=== PATIENT | female | born 1965 | race Caucasian/White ===

== ENCOUNTER 2017-08-16 18:16 | Inpatient (IN) | payer OTHER ==
[~2017-08-16] VITALS: Ht 165.1 cm; Wt 97.0 kg
[~2017-08-16 18:16] MED LIST: ASPI1TAB83 PO; ATOR-24 PO; CEPH500C PO; CLC100X PO; CLON0.5T3 PO; DILT-115 PO; DULO60CA44 PO; FERR1TAB23 PO; FOLI1TAB7 PO; KPP/750 PO; LCTX PO; LISI5TAB3 PO; METO-596 PO; MULTTAB5 PO; NRN/300 PO; PANT1TAB48 PO; POLY335040 PO; REVIEWED; RISP0.253 PO; RXC5 PO; ZOLP5TAB PO
[2017-08-16] MEDS ORDERED: SODIUM CHLORIDE 0.9% 1000ML 1,000 ML IV STA (18:30)
[2017-08-16] MEDS ORDERED: LEVETIRACETAM IV 1,000 MG in DEXTROSE 5% 100ML 100 ML IV ONE (18:45)
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
[2017-08-16 20:25] LABS: COMPLETE YES; EOS % 1.4 %; HEMATOCRIT 36.3 % (37-47); IG% 0.2 %; LYMPH % 38.7 %; LYMPH ABS # 1.98 K/uL (1.2-3.4); MEAN CELL VOLUME 90.5 fL (80-100); MEAN CORPUSCULAR HEMOGLOBIN 30.4 pg (25-34); MEAN CORPUSCULAR HGB CONC 33.6 g/dl (32-36); MONO % 8.2 %; NEUT % 51.5 %; PLATELET COUNT 151 K/uL (130-400); RED BLOOD COUNT 4.01 M/uL (4.2-5.4); WHITE BLOOD COUNT 5.11 K/uL (4.8-10.8)
[2017-08-16 20:40] LABS: VEN BLD GAS O2 SATURATION 95.6 %; VEN BLOOD GAS BASE EXCESS 1.8 mEq/L
--- NOTE | 2017-08-16 20:44 | DIAGNOSTIC IMAGING REPORT ---
HEAD WITHOUT CONTRAST (CT) CLINICAL HISTORY: 51 years-old Female presenting with AMS; h/o seizures. TECHNIQUE: Multidetector CT imaging of the head was performed without the use of intravenous contrast. IV contrast: None. A dose lowering technique was used consistent with the principles of ALARA (as low as reasonably achievable). COMPARISON: 04/05/2014. CT DOSE (mGy.cm): The estimated cumulative dose is 729.78 mGycm. FINDINGS: Artificial Flowers Dyer topogram: Unremarkable. Ventricles and sulci normal in size. Hypodensity of the anterior left temporal lobe with associated expansion of the left sylvian fissure and temporal horn of the left lateral ventricle, consistent with chronic infarct, new from prior. No mass effect or midline shift. No hemorrhage or acute territorial infarct. No extra-axial fluid collection. Paranasal sinuses and mastoid air cells clear. Calvarium intact. IMPRESSION: 1. Interval development of chronic infarct in the left anterior temporal lobe. No convincing evidence of acute intracranial pathology. Electronically signed by: Carlo Alvarado M.D. 08/16/2017 8:43 PM Dictated Date/Time: 08/16/2017 8:39 PM
[2017-08-16 20:48] LABS: ALT/SGPT 18 U/L (12-78); AST/SGOT 13 U/L (15-37); BLOOD UREA NITROGEN 25 mg/dl (7-18); BUN/CREATININE RATIO 28.2 (10-20); CALCIUM 8.4 mg/dl (8.5-10.1); CARBON DIOXIDE 24 mmol/L (21-32); CHLORIDE 110 mmol/L (98-107); CREATININE 0.87 mg/dl (0.60-1.20); GLUCOSE 103 mg/dl (70-99); POTASSIUM 4.4 mmol/L (3.5-5.1); SODIUM 143 mmol/L (136-145)
[2017-08-16 20:53] LABS: ALKALINE PHOSPHATASE 98 U/L (45-117)
[2017-08-16] MEDS ORDERED: ASPIRIN 324 MG CHEW PO STA (21:26)
[2017-08-16] MEDS ORDERED: DLN100 PO (21:30)
[2017-08-16] MEDS ORDERED: EFF75 PO (21:30)
[2017-08-16] MEDS ORDERED: KPP/1000 PO (21:30)
[2017-08-16] MEDS ORDERED: LAMO25TA PO (21:30)
[2017-08-16] MEDS ORDERED: RISP1TAB68 PO (21:30)
[2017-08-16] MEDS ORDERED: LISI-461 PO (21:30)
[2017-08-16] MEDS ORDERED: EFF/375 PO (21:30)
[2017-08-16 21:59] LABS: MAGNESIUM 1.9 mg/dl (1.8-2.4)
--- NOTE | 2017-08-16 22:44 | DIAGNOSTIC IMAGING REPORT ---
R VENOUS DOPPLER UPR EXT UNIL CLINICAL HISTORY: 51 years-old Female presenting with RUE swelling. TECHNIQUE: Real-time grayscale and color and spectral Doppler ultrasound imaging of the veins of the right upper extremity was performed. Compression and augmentation were also utilized. COMPARISON: 01/26/2016. FINDINGS: Right: Subclavian vein: Patent. Internal jugular vein: Patent. Axillary vein: Patent. Brachial vein: Patent. Cephalic vein: None visualized. Basilic vein: Patent. Radial vein: Patent. Ulnar vein: Patent. Other: None. IMPRESSION: No evidence of deep venous thrombosis. Electronically signed by: Carlo Alvarado M.D. 08/16/2017 10:43 PM Dictated Date/Time: 08/16/2017 10:41 PM
[2017-08-16] MEDS ORDERED: ONDANSETRON INJ 2 MG/ML 2 ML VIAL IV PRN (23:15)
[2017-08-16] MEDS ORDERED: NITROGLYCERIN 0.4 MG SL PER TAB CHARGE SL PRN (23:15)
[2017-08-16] MEDS ORDERED: PHARMACIST DISCHARGE MED REC CONSULT PRN (23:15)
[2017-08-16] MEDS ORDERED: OXYCODONE/ACETAMINOPHEN 5-325 TAB PO PRN (23:15)
[2017-08-16] MEDS ORDERED: VENL-273 PO (23:32)
[2017-08-16] MEDS ORDERED: VENL-271 PO (23:32)
[2017-08-17] VITALS (11 sets, daily range): BP systolic 108–145; BP diastolic 59–97; PULSE 62–72; TEMP 36.5–36.8; O2SAT 95–100; Ht 165.1 cm; Wt 97.0 kg
[2017-08-17] MEDS ORDERED: SODIUM CHLORIDE 0.45% 1000ML 1,000 ML IV ONE (01:00)
[2017-08-17] MEDS ORDERED: DOXYCYCLINE IV 100 MG in DEXTROSE 5% 100ML 100 ML IV ONE (01:00)
[2017-08-17 04:44] LABS: URINE APPEARANCE CLEAR (CLEAR); URINE BILIRUBIN NEG (NEG); URINE COLOR YELLOW; URINE EPITHELIAL CELL AUTO >30 /lpf (0-5); URINE NITRITE NEG (NEG); URINE PH 5.5 (4.5-7.5); URINE SPECIFIC GRAVITY 1.017 (1.000-1.030); UROBILINOGEN NEG (NEG); ZZUR CULT IF INDIC CLEAN CATCH YES
[2017-08-17 05:02] LABS: BENZODIAZEPINE, URINE NEG (NEG); COCAINE,URINE NEG (NEG); PHENCYCLIDINE, URINE NEG (NEG)
[2017-08-17 05:33] LABS: MANUAL MICROSCOPIC REQUIRED? NO; REVIEW REQ? NO
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
[2017-08-17] MEDS ORDERED: LEVETIRACETAM 500 MG TAB PO SCH (09:00)
[2017-08-17] MEDS ORDERED: VENLAFAXINE HCL XR 75 MG CAPXR PO SCH (09:00)
--- NOTE | 2017-08-17 10:07 | DIAGNOSTIC IMAGING REPORT ---
BILATERAL CAROTID DOPPLER STUDY HISTORY: Stroke symptoms. COMPARISON: None. TECHNIQUE: Real-time, grayscale, and color Doppler sonography of the carotid arteries was performed. Imaging reviewed in the transverse and longitudinal planes. All measurements were calculated based on NASCET criteria. FINDINGS: Antegrade flow is seen in the bilateral vertebral arteries. The brachial pressures were unable to be obtained due to the patient's edema. Minimal calcified plaque within the right carotid bulb. The peak systolic velocity within the right ICA is 85 cm/s. The right systolic ratio is 1.2. The peak systolic velocity within the left ICA is 68 cm/s. The left systolic ratio is 1.1. IMPRESSION: No hemodynamically significant stenosis seen within the carotid arteries. Electronically signed by: Jeff Sapp M.D. 08/17/2017 10:06 AM Dictated Date/Time: 08/17/2017 10:05 AM
--- NOTE | 2017-08-17 10:19 | DIAGNOSTIC IMAGING REPORT ---
ORBIT RADIOGRAPHS 2 VIEWS HISTORY: pre-MRI screening. COMPARISON: None. FINDINGS: There are no radiopaque foreign bodies identified within the orbits. IMPRESSION: No radiopaque foreign bodies identified within the orbits. Electronically signed by: Jeff Sapp M.D. 08/17/2017 10:17 AM Dictated Date/Time: 08/17/2017 10:16 AM
--- NOTE | 2017-08-17 10:24 | DIAGNOSTIC IMAGING REPORT ---
KUB HISTORY: mri prerequisite; questionnaire cannot be accomplished by px COMPARISON: None. FINDINGS: The bowel gas pattern is unremarkable. There are no dilated loops of small bowel to suggest an obstruction. No renal calculi. No ureteral calculi. No pneumoperitoneum or pneumatosis. There is no IVC filter positioned of the right side of the L3-L4 vertebral bodies. An intrauterine device is noted. Surgical clip within the right upper quadrant suggestive of prior cholecystectomy. IMPRESSION: 1. A few metallic densities within the abdomen and pelvis as described above. This does not exclude the patient from an MRI. 2. An intrauterine device is noted. If the patient is menopausal this should be removed. Electronically signed by: Jeff Sapp M.D. 08/17/2017 10:22 AM Dictated Date/Time: 08/17/2017 10:20 AM
[2017-08-17] MEDS: VENLAFAXINE HCL XR 75 MG CAPXR PO SCH (10:34)
[2017-08-17] MEDS: ATORVASTATIN 40 MG TAB PO SCH (10:34)
[2017-08-17] MEDS: DOXYCYCLINE HYCLATE 100 MG CAP PO SCH ×2 (10:35→20:35)
[2017-08-17] MEDS: VENLAFAXINE HCL XR 37.5 MG CAPXR PO SCH (10:35)
[2017-08-17] MEDS: ASPIRIN 325 MG ECTAB PO SCH (10:35)
[2017-08-17 10:45] LABS: BASO % 0.2 %; BASO ABS # 0.01 K/uL (0-0.2); COMPLETE YES; EOS % 1.3 %; IG% 0.2 %; LYMPH % 28.8 %; LYMPH ABS # 1.36 K/uL (1.2-3.4); MEAN CELL VOLUME 89.6 fL (80-100); MEAN CORPUSCULAR HEMOGLOBIN 30.2 pg (25-34); MEAN CORPUSCULAR HGB CONC 33.7 g/dl (32-36); MEAN PLATELET VOLUME 10.1 fL (7.4-10.4); MONO % 7.6 %; NEUT % 61.9 %; PLATELET COUNT 160 K/uL (130-400); RED BLOOD COUNT 4.24 M/uL (4.2-5.4); WHITE BLOOD COUNT 4.73 K/uL (4.8-10.8)
[2017-08-17 10:57] LABS: PROTHROMBIN TIME (PATIENT) 10.9 SECONDS (9.0-12.0)
[2017-08-17 11:06] LABS: BUN/CREATININE RATIO 27.6 (10-20); CALCIUM 8.6 mg/dl (8.5-10.1); CREATININE 0.78 mg/dl (0.60-1.20); POTASSIUM 4.9 mmol/L (3.5-5.1)
[2017-08-17 11:09] LABS: CHOLESTEROL/HDL RATIO 5.6
[2017-08-17] MEDS: ENOXAPARIN 40 MG/0.4 ML SYR SQ SCH (12:00)
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
--- NOTE | 2017-08-17 15:05 | ECHOCARDIOGRAM REPORT ---
*NOTICE TO RECEIVING CONSTITUTION PARTY AGENCY This information is strictly Confidential and protected under [place] law. [place] law prohibits you from making any further disclosure of this information unless further disclosure is expressly permitted by the written consent of the person to whom it pertains or is authorized by law. A general authorization for the release of medical or other information is not sufficient for this purpose. Hospital accepts no responsibility if the information is made available to any other person, INCLUDING THE PATIENT. Interpretation Summary * The study was technically limited. * Compared to prior study, there is no significant change. * -- Conclusions -- * Ejection Fraction = 60-65%. * The left atrium is mildly dilated. * Diastolic dysfunction, Grade II (pseudonormalization pattern). * Trace aortic regurgitation. * Injection of contrast documented no interatrial shunt. Procedure Details * A complete two-dimensional transthoracic echocardiogram was performed (2D, M-mode, Doppler and color flow Doppler). * The study was technically limited. * The study was technically difficult. * There were technical limitations due to patient'sbody habitus * A saline contrast injection was performed to assess for cardiac shunting. * The injection was performed through an intravenous line in the left arm. * The attending nurse who injected the saline contrast was Gwendolyn Ames RN. * A total of 20 cc of agitated saline was given. Left Ventricle * The left ventricle is normal in size. * The left ventricular apex is not well visualized. * There is normal left ventricular wall thickness. * Left ventricular systolic function is normal. * Ejection Fraction = 60-65%. * No regional wall motion abnormalities noted. Right Ventricle * The right ventricle is normal size. * The right ventricular systolic function is normal as assessed by tricuspid annular plane systolic excursion (TAPSE) (normal >1.5 cm). Atria * The left atrium is mildly dilated. * Right atrial size is normal. * Injection of contrast documented no interatrial shunt. Mitral Valve * The mitral valve is normal. * There is no mitral valve stenosis. * Significant mitral regurgitation is absent. Tricuspid Valve * The tricuspid valve is normal. * There is no tricuspid stenosis. * Significant tricuspid regurgitation is absent. Aortic Valve * The aortic valve is not well visualized. * Aortic stenosis is absent. * Trace aortic regurgitation. Pulmonic Valve * The pulmonary valve is not well seen, but the Doppler examination is normal without significant regurgitation or stenosis. Great Vessels * The aortic root is normal size. Pericardium/Pleural * There is no pericardial effusion. Great Vessels * Normal inferior vena cava diameter and respiratory variation suggests normal central venous pressure. Left Ventricular Diastolic Function * Diastolic dysfunction, Grade II (pseudonormalization pattern). MMode 2D Measurements and Calculations IVSd 1.0 cm LVIDd 4.4 cm LVIDs 2.7 cm LVPWd 1.1 cm IVS/LVPW 0.89 FS 40.0 % EDV(Teich) 89.4 ml ESV(Teich) 26.0 ml EF(Teich) 70.9 % EDV(cubed) 87.3 ml ESV(cubed) 18.8 ml EF(cubed) 78.4 % LV mass(C)d 167.3 grams LV mass(C)dI 81.2 grams/m\S\2 SV(Teich) 63.3 ml SI(Teich) 30.7 ml/m\S\2 SV(cubed) 68.4 ml SI(cubed) 33.2 ml/m\S\2 Ao root diam 2.9 cm Ao root area 6.8 cm\S\2 ACS 2.3 cm LA dimension 4.3 cm asc Aorta Diam 3.7 cm LA/Ao 1.4 LVOT diam 2.0 cm LVOT area 3.0 cm\S\2 LVAd ap4 23.2 cm\S\2 LVLd ap4 6.8 cm EDV(MOD-sp4) 62.5 ml EDV(sp4-el) 66.7 ml LVAs ap4 12.7 cm\S\2 LVLs ap4 5.7 cm ESV(MOD-sp4) 22.9 ml ESV(sp4-el) 23.8 ml EF(MOD-sp4) 63.4 % EF(sp4-el) 64.4 % LVAd ap2 21.2 cm\S\2 LVLd ap2 6.6 cm EDV(MOD-sp2) 55.4 ml EDV(sp2-el) 57.8 ml LVAs ap2 11.4 cm\S\2 LVLs ap2 5.2 cm ESV(MOD-sp2) 20.9 ml ESV(sp2-el) 21.0 ml EF(MOD-sp2) 62.3 % EF(sp2-el) 63.6 % LVLd %diff -3.23 % EDV(MOD-bp) 58.8 ml LVLs %diff -9.46 % ESV(MOD-bp) 22.1 ml EF(MOD-bp) 62.5 % SV(MOD-sp4) 39.6 ml SI(MOD-sp4) 19.2 ml/m\S\2 SV(MOD-sp2) 34.5 ml SI(MOD-sp2) 16.7 ml/m\S\2 SV(MOD-bp) 36.7 ml SI(MOD-bp) 17.8 ml/m\S\2 SV(sp4-el) 43.0 ml SI(sp4-el) 20.9 ml/m\S\2 SV(sp2-el) 36.8 ml SI(sp2-el) 17.9 ml/m\S\2 Doppler Measurements and Calculations MV E max balta 104.3 cm/sec MV A max balta 83.4 cm/sec MV E/A 1.3 MV dec time 0.20 sec Ao V2 max 116.7 cm/sec Ao max PG 5.5 mmHg Ao max PG (full) 2.1 mmHg TONY(V,A) 2.4 cm\S\2 TONY(V,D) 2.4 cm\S\2 LV V1 max PG 3.4 mmHg LV V1 max 92.2 cm/sec PA V2 max 104.2 cm/sec PA max PG 4.3 mmHg PA acc slope 563.2 cm/sec\S\2 PA acc time 0.12 sec PA pr(Accel) 25.1 mmHg
--- NOTE | 2017-08-17 16:38 | DIAGNOSTIC IMAGING REPORT ---
BRAIN WITHOUT CONTRAST HISTORY: Mental status change Stroke TECHNIQUE: Multiplanar multisequence MRI of the brain was performed without the use of contrast. COMPARISON STUDY: None. FINDINGS: Diffusion-weighted images show no evidence for an acute ischemic insult. Moderate cerebellar as well as cerebral atrophy. Old left temporal infarct. Ventricular system is midline. Mild chronic small vessel change of aging. IMPRESSION: 1. No evidence for an acute ischemic process. 2. Old left temporal infarct. 3. Atrophy. The above report was generated using voice recognition software. It may contain grammatical, syntax or spelling errors. Electronically signed by: Kobi Parra M.D. 08/17/2017 4:37 PM Dictated Date/Time: 08/17/2017 4:34 PM
--- NOTE | 2017-08-17 16:40 | DIAGNOSTIC IMAGING REPORT ---
MRA HEAD WITHOUT CONTRAST HISTORY: Mental status change Stroke - Attention to [place] TECHNIQUE: 3-D [id number] MRA of the brain was performed without contrast. COMPARISON STUDY: None. FINDINGS: Visualized intracranial internal carotid arteries, distal vertebral arteries, and basilar artery are widely patent. There is no significant stenosis, occlusion, or aneurysm seen within the bilateral ACAs, MCAs, or dredge pipe operator. IMPRESSION: No significant stenosis, occlusion, or aneurysm within the [place]. The above report was generated using voice recognition software. It may contain grammatical, syntax or spelling errors. Electronically signed by: Kobi Parra M.D. 08/17/2017 4:39 PM Dictated Date/Time: 08/17/2017 4:37 PM
--- NOTE | 2017-08-17 18:39 | ELECTROENCEPHALOGRAPH REPORT ---
REQUESTING PHYSICIAN: Dr. Jin CLINICAL DIAGNOSIS: Question seizures. EEG DIAGNOSIS: Essentially normal during wakefulness. DESCRIPTION OF TRACING: This EEG was done as a bedside recording. No activation procedures were utilized. Video analysis of patient movement and behavior was obtained. Hyperventilation was not performed. Drowsiness and light sleep are not clearly recorded. During wakefulness, there is evidence for what appears to be a normal background rhythm in the alpha range of about 9-10 Hz of maximum frequency and 30 microvolts of maximum amplitude. This is maximum in posterior head regions and bilaterally symmetrical. Polymorphic mid to frequency modest amplitude theta activity is seen over all head regions without clear focal or regional predominance. Anterior head region maximum bilaterally symmetrical low voltage fast activity in the beta range is present. At no time during the waking tracing is there evidence for potentially epileptogenic activity in the form of polyspike or spike wave bursts, focal sharp waves or focal spikes. INTERPRETATION: This EEG is essentially normal during wakefulness without evidence for focal or generalized encephalopathy and without evidence for potentially epileptogenic activity.
[2017-08-17] MEDS: RISPERIDONE 1 MG TAB PO SCH (20:36)
[2017-08-17] MEDS: LEVETIRACETAM 500 MG TAB PO SCH (20:36)
[2017-08-17] MEDS: ACETAMINOPHEN 325 MG TAB PO PRN (20:44)
[2017-08-18] VITALS (7 sets, daily range): BP systolic 109–138; BP diastolic 63–86; PULSE 69–98; TEMP 36.5–37; O2SAT 94–99
[2017-08-18] MEDS: ASPIRIN 325 MG ECTAB PO SCH (09:42)
[2017-08-18] MEDS: VENLAFAXINE HCL XR 75 MG CAPXR PO SCH (09:42)
[2017-08-18] MEDS: VENLAFAXINE HCL XR 37.5 MG CAPXR PO SCH (09:43)
[2017-08-18] MEDS: LEVETIRACETAM 500 MG TAB PO SCH ×2 (09:44→21:06)
[2017-08-18] MEDS: ATORVASTATIN 40 MG TAB PO SCH (09:45)
[2017-08-18] MEDS: DOXYCYCLINE HYCLATE 100 MG CAP PO SCH ×2 (09:45→21:07)
[2017-08-18] MEDS: ENOXAPARIN 40 MG/0.4 ML SYR SQ SCH (09:45)
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
[2017-08-18] MEDS: RISPERIDONE 1 MG TAB PO SCH (21:07)
[2017-08-18] MEDS: ACETAMINOPHEN 325 MG TAB PO PRN (21:16)
--- NOTE | 2017-08-18 23:37 | Progress Note ---
Subjective Date of Service: Aug 18, 2017. Subjective Pt evaluation today including: conversation w/ patient, physical exam, lab review, review of studies, review of inpatient medication list Saw/examined the patient in room 208 Doing well, back to baseline as per guards Seated in a chair; gives some answers; but difficult to understand due to garbled language Problem List Medical Problems: (1) Altered mental status Status: Acute (2) Cellulitis of right arm Status: Acute (3) Confusion Status: Acute (4) Stroke Status: Acute (5) Swelling of right upper extremity Status: Acute Review of Systems Unable to obtain Medications Current Inpatient Medications Medications (Trade) Dose Ordered Sig/Mango Route Start Time Stop Time Status Last Admin Dose Admin Acetaminophen (Tylenol Tab) 650 mg Q4H PRN PO 08/16/17 23:15 09/15/17 23:14 08/18/17 21:16 650 MG Nitroglycerin (Nitrostat Tab) 0.4 mg UD PRN SL 08/16/17 23:15 09/15/17 23:14 Lamotrigine (Lamictal Tab) 25 mg BID PO 08/17/17 09:00 09/16/17 08:59 08/18/17 21:07 25 MG Risperidone (Risperdal Tab) 1 mg HS PO 08/17/17 21:00 09/16/17 20:59 08/18/17 21:07 1 MG Venlafaxine HCl (effeXOR EXTENDED REL CAP) 37.5 mg DAILY PO 08/17/17 09:00 09/16/17 08:59 08/18/17 09:43 37.5 MG Venlafaxine HCl (effeXOR EXTENDED REL CAP) 75 mg DAILY PO 08/17/17 09:00 09/16/17 08:59 08/18/17 09:42 75 MG Oxycodone/ Acetaminophen (Percocet 5-325mg Tab) 1 tab Q6H PRN PO 08/16/17 23:15 08/30/17 23:14 Doxycycline Hyclate (Vibramycin Cap) 100 mg BID PO 08/17/17 09:00 08/27/17 08:59 08/18/17 21:07 100 MG Ondansetron HCl (Zofran Inj) 4 mg Q6H PRN IV 08/16/17 23:15 09/15/17 23:14 Aspirin (Ecotrin Tab) 325 mg QAM PO 08/17/17 09:00 09/16/17 08:59 08/18/17 09:42 325 MG Enoxaparin Sodium (Lovenox Inj) 40 mg DAILY SQ 08/17/17 11:30 09/16/17 11:29 08/18/17 09:45 40 MG Atorvastatin Calcium (Lipitor Tab) 40 mg QAM PO 08/17/17 09:00 09/16/17 08:59 08/18/17 09:45 40 MG Levetiracetam (Keppra Tab) 1,500 mg BID PO 08/17/17 21:00 09/16/17 08:59 08/18/17 21:06 1,500 MG Objective Vital Signs Date Time Temp Pulse Resp B/P (MAP) Pulse Ox O2 Delivery O2 Flow Rate FiO2 08/18/17 20:26 36.8 69 16 126/83 (97) 94 Room Air 08/18/17 20:00 Room Air 08/18/17 16:00 96 Room Air 08/18/17 15:37 36.8 81 18 129/86 (100) 96 Room Air 08/18/17 11:30 37.0 88 18 138/64 (88) 95 08/18/17 08:30 Room Air 08/18/17 08:07 36.8 98 18 109/63 (78) 99 08/18/17 04:17 36.5 69 16 111/71 (84) 95 Room Air 08/18/17 04:00 Room Air 08/18/17 00:01 Room Air 08/17/17 23:29 36.5 72 18 125/75 (92) 98 Physical Exam General Appearance: no apparent distress ENT: + pertinent finding (tongue sticking out) Respiratory/Chest: lungs clear, normal breath sounds, no respiratory distress, no accessory muscle use Cardiovascular: regular rate, rhythm, no edema, no murmur Laboratory Results Last 24 Hours Test 08/18/17 05:50 Phenytoin (Dilantin) Level 32.3 mcg/mL Assessment and Plan Altered Mental Status possibly related to a seizure activity dilantin level is elevated - we will hold this currently Keppra dose is increased as per neurology MRI suggests previous CVA Hx. of CVA no acute stroke Head Ct and MRI negative for acute stroke continue aspirin + statin Hx. of DVT/PE s/p IVC filter Hx. of Nonischemic Cardiomyopathy (stress induced?) euvolemic Depression continue Venlafaxine DVT ppx Lovenox FULL CODE plan to d/c back to halfway on 08/19
[2017-08-19 07:42] VITALS: BP 107/76; PULSE 76; TEMP 36.5; O2SAT 97
[2017-08-19 08:00] VITALS: O2SAT 97
[2017-08-19 08:47] LABS: HEMATOCRIT 37.4 % (37-47); MEAN CELL VOLUME 87.6 fL (80-100); MEAN CORPUSCULAR HEMOGLOBIN 30.2 pg (25-34); MEAN CORPUSCULAR HGB CONC 34.5 g/dl (32-36); MEAN PLATELET VOLUME 10.1 fL (7.4-10.4); PLATELET COUNT 149 K/uL (130-400); RED BLOOD COUNT 4.27 M/uL (4.2-5.4); WHITE BLOOD COUNT 4.18 K/uL (4.8-10.8)
[2017-08-19] MEDS: ASPIRIN 325 MG ECTAB PO SCH (09:21)
[2017-08-19] MEDS: ATORVASTATIN 40 MG TAB PO SCH (09:21)
[2017-08-19] MEDS: VENLAFAXINE HCL XR 37.5 MG CAPXR PO SCH (09:22)
[2017-08-19] MEDS: VENLAFAXINE HCL XR 75 MG CAPXR PO SCH (09:22)
[2017-08-19] MEDS: LEVETIRACETAM 500 MG TAB PO SCH (09:22)
[2017-08-19] MEDS: DOXYCYCLINE HYCLATE 100 MG CAP PO SCH (09:22)
[2017-08-19 09:23] LABS: BUN/CREATININE RATIO 26.9 (10-20); CALCIUM 8.9 mg/dl (8.5-10.1); MAGNESIUM 1.8 mg/dl (1.8-2.4); POTASSIUM 4.2 mmol/L (3.5-5.1)
[2017-08-19] MEDS: ENOXAPARIN 40 MG/0.4 ML SYR SQ SCH (09:32)
[2017-08-19 11:16] VITALS: BP 123/76; PULSE 67; TEMP 36.5; O2SAT 99
[2017-08-19 12:00] VITALS: O2SAT 95
[2017-08-19 15:27] VITALS: BP 112/64; PULSE 70; TEMP 36.7; O2SAT 100
--- NOTE | 2017-08-19 15:34 | Progress Note ---
Subjective Date of Service: Aug 19, 2017. Subjective Pt evaluation today including: conversation w/ patient, physical exam, lab review, review of studies, review of inpatient medication list Saw/examined the patient in room 208 She is doing well; continues to have incomprehensible words, aphasia No distress Back to baseline as per guards Problem List Medical Problems: (1) Altered mental status Status: Acute (2) Cellulitis of right arm Status: Acute (3) Confusion Status: Acute (4) Stroke Status: Acute (5) Swelling of right upper extremity Status: Acute Medications Current Inpatient Medications Medications (Trade) Dose Ordered Sig/Mango Route Start Time Stop Time Status Last Admin Dose Admin Acetaminophen (Tylenol Tab) 650 mg Q4H PRN PO 08/16/17 23:15 09/15/17 23:14 08/18/17 21:16 650 MG Nitroglycerin (Nitrostat Tab) 0.4 mg UD PRN SL 08/16/17 23:15 09/15/17 23:14 Lamotrigine (Lamictal Tab) 25 mg BID PO 08/17/17 09:00 09/16/17 08:59 08/19/17 09:21 25 MG Risperidone (Risperdal Tab) 1 mg HS PO 08/17/17 21:00 09/16/17 20:59 08/18/17 21:07 1 MG Venlafaxine HCl (effeXOR EXTENDED REL CAP) 37.5 mg DAILY PO 08/17/17 09:00 09/16/17 08:59 08/19/17 09:22 37.5 MG Venlafaxine HCl (effeXOR EXTENDED REL CAP) 75 mg DAILY PO 08/17/17 09:00 09/16/17 08:59 08/19/17 09:22 75 MG Oxycodone/ Acetaminophen (Percocet 5-325mg Tab) 1 tab Q6H PRN PO 08/16/17 23:15 08/30/17 23:14 Doxycycline Hyclate (Vibramycin Cap) 100 mg BID PO 08/17/17 09:00 08/27/17 08:59 08/19/17 09:22 100 MG Ondansetron HCl (Zofran Inj) 4 mg Q6H PRN IV 08/16/17 23:15 09/15/17 23:14 Aspirin (Ecotrin Tab) 325 mg QAM PO 08/17/17 09:00 09/16/17 08:59 08/19/17 09:21 325 MG Enoxaparin Sodium (Lovenox Inj) 40 mg DAILY SQ 08/17/17 11:30 09/16/17 11:29 08/19/17 09:32 40 MG Atorvastatin Calcium (Lipitor Tab) 40 mg QAM PO 08/17/17 09:00 09/16/17 08:59 08/19/17 09:21 40 MG Levetiracetam (Keppra Tab) 1,500 mg BID PO 08/17/17 21:00 09/16/17 08:59 08/19/17 09:22 1,500 MG Objective Vital Signs Date Time Temp Pulse Resp B/P (MAP) Pulse Ox O2 Delivery O2 Flow Rate FiO2 08/19/17 12:00 95 Room Air 08/19/17 11:16 36.5 67 18 123/76 (92) 99 Room Air 08/19/17 08:00 97 Room Air 08/19/17 07:42 36.5 76 19 107/76 (86) 97 Room Air 08/19/17 04:00 Room Air 08/19/17 00:01 Room Air 08/18/17 23:40 36.5 69 18 119/64 (82) 96 Room Air 08/18/17 20:26 36.8 69 16 126/83 (97) 94 Room Air 08/18/17 20:00 Room Air 08/18/17 16:00 96 Room Air 08/18/17 15:37 36.8 81 18 129/86 (100) 96 Room Air Physical Exam General Appearance: no apparent distress ENT: + pertinent finding (old smith througout body) Respiratory/Chest: no respiratory distress, no accessory muscle use Cardiovascular: regular rate, rhythm, no edema, no murmur Neurologic/Psychiatric: alert, + pertinent finding (incomprehensible words, garbled speech, chronic) Laboratory Results Last 24 Hours Test 08/19/17 08:25 White Blood Count 4.18 K/uL Red Blood Count 4.27 M/uL Hemoglobin 12.9 g/dL Hematocrit 37.4 % Mean Corpuscular Volume 87.6 fL Mean Corpuscular Hemoglobin 30.2 pg Mean Corpuscular Hemoglobin Concent 34.5 g/dl RDW Standard Deviation 42.8 fL RDW Coefficient of Variation 13.4 % Platelet Count 149 K/uL Mean Platelet Volume 10.1 fL Sodium Level 140 mmol/L Potassium Level 4.2 mmol/L Chloride Level 106 mmol/L Carbon Dioxide Level 24 mmol/L Anion Gap 10.0 mmol/L Blood Urea Nitrogen 27 mg/dl Creatinine 1.00 mg/dl Est Creatinine Clear Calc Drug Dose 77.6 ml/min Estimated GFR () 76.1 Estimated GFR (Non- 65.6 BUN/Creatinine Ratio 26.9 Random Glucose 149 mg/dl Calcium Level 8.9 mg/dl Magnesium Level 1.8 mg/dl Phenytoin (Dilantin) Level 29.1 mcg/mL Assessment and Plan Altered Mental Status 08/19 appreciate neurology input will hold Dilantin, check Dilantin level daily, when in the mid 20's, we can restart Dilantin and recheck levels in 7 days Keppra dose increased outpatient neurology f/u 08/18 possibly related to a seizure activity dilantin level is elevated - we will hold this currently Keppra dose is increased as per neurology MRI suggests previous CVA Hx. of CVA no acute stroke Head Ct and MRI negative for acute stroke continue aspirin + statin Hx. of DVT/PE s/p IVC filter Hx. of Nonischemic Cardiomyopathy (stress induced?) euvolemic Depression continue Venlafaxine DVT ppx Lovenox FULL CODE plan to d/c back to [facility] on 08/19
[2017-08-19] MEDS ORDERED: DXY100 PO ×2 (15:37→16:12)
[2017-08-19] MEDS ORDERED: KPP/1000 PO ×2 (15:37→16:12)
[2017-08-19] MEDS ORDERED: ASPEC325 PO ×2 (15:37→16:12)
[2017-08-19] MEDS ORDERED: LPT40 PO ×2 (15:37→16:12)
--- NOTE | 2017-08-19 15:40 | Discharge Instructions ---
Discharge Instructions Date of Service Aug 19, 2017. Admission Reason for Admission: CVA Discharge Discharge Diagnosis / Problem: Seizure Disorder; Altered Mental Status, Hx. of Stroke Discharge Goals Goal(s): Decrease discomfort, Improve function, Diagnostic testing, Therapeutic intervention Activity Recommendations Activity Limitations: resume your previous activity . Instructions / Follow-Up Instructions / Follow-Up Patient to have Keppra dose increased to 1500mg twice a day Hold Dilantin - check daily Dilantin levels; when Dilantin level is in the mid 20's, restart Dilantin. After restarting Dilantin, recheck level in 7-10 days. Follow-up with neurology, Dr. Ospina or HELEN Mendoza. Current Hospital Diet Patient's current hospital diet: AHA Diet (Heart Healthy) Discharge Diet Recommended Diet: AHA Diet (Heart Healthy) Pending Studies Studies pending at discharge: no Laboratory Results Lipid Panel Test 08/17/17 10:32 Range/Units Triglycerides Level 212 H 0-150 mg/dl Cholesterol Level 270 H 0-200 mg/dl HDL Cholesterol 48 mg/dl Cholesterol/HDL Ratio 5.6 LDL Cholesterol, Calculated 180 mg/dl Medical Emergencies . Who to Call and When: Medical Emergencies: If at any time you feel your situation is an emergency, please call 911 immediately. . Non-Emergent Contact Non-Emergency issues call your: Primary Care Provider . . "Provider Documentation" section prepared by John Humphries. . VTE Core Measure Inpt VTE Proph given/why not?: Enoxaparin (Lovenox)SQ
[2017-08-19 15:43] VITALS: BP 112/64; PULSE 70; TEMP 36.7; O2SAT 100
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
== END 2017-08-19 16:20 | disposition home or self-care (01) | DRG 101 ==
LOC: EDBD 18:16 → C.EDA 18:19 → C.2E 22:37 → EDBEDREQ 22:43 → ENRESERV 22:45
PROVIDERS: ADMIT Internal Medicine; ATTEND Family Medicine
DX: G40.909 Epilepsy, unspecified, not intractable, without status epilepticus (principal); L03.113 Cellulitis of right upper limb; D68.59 Other primary thrombophilia; R47.01 Aphasia; R41.82 Altered mental status, unspecified; R79.89 Other specified abnormal findings of blood chemistry; I10 Essential (primary) hypertension; E78.5 Hyperlipidemia, unspecified; G89.29 Other chronic pain; F39 Unspecified mood [affective] disorder; E66.9 Obesity, unspecified; Z68.35 Body mass index [BMI] 35.0-35.9, adult; Z86.73 Personal history of transient ischemic attack (TIA), and cerebral infarction without residual deficits; Z86.79 Personal history of other diseases of the circulatory system; Z86.69 Personal history of other diseases of the nervous system and sense organs; Z86.711 Personal history of pulmonary embolism; Z86.718 Personal history of other venous thrombosis and embolism; Z87.828 Personal history of other (healed) physical injury and trauma; Z86.19 Personal history of other infectious and parasitic diseases; Z79.899 Other long term (current) drug therapy

== ENCOUNTER → 2017-09-01 | Outpatient (CLI) | payer OTHER ==
[~2017-09-01] MED LIST changes: +ASPEC325 PO; -ASPI1TAB83 PO; -ATOR-24 PO; -CEPH500C PO; -CLC100X PO; -CLON0.5T3 PO; -DILT-115 PO; -DULO60CA44 PO; +DXY100 PO; -FERR1TAB23 PO; -FOLI1TAB7 PO; +KPP/1000 PO; -KPP/750 PO; +LAMO25TA PO; -LCTX PO; +LISI-461 PO; -LISI5TAB3 PO; +LPT40 PO; -METO-596 PO; -MULTTAB5 PO; -NRN/300 PO; -PANT1TAB48 PO; -POLY335040 PO; -REVIEWED; -RISP0.253 PO; +RISP1TAB68 PO; -RXC5 PO; +VENL-271 PO; +VENL-273 PO; -ZOLP5TAB PO
[2017-09-01 09:56] LABS: CHOLESTEROL/HDL RATIO 2.9
--- NOTE | 2017-09-05 13:03 | CODING QUERY NO DIAGNOSIS ---
TREATMENT RENDERED WITHOUT A DIAGNOSIS : 08/30/1966 To promote full compliance with coding requirements relating to patient care, physician participation is requested in all cases of painter barrel uncertainty. Please assist us with providing a diagnosis/symptom for the test(s) below: A diagnosis/symptom was not documented on your Order. A valid diagnosis/symptom is required to bill all insurances. Please remember that we are unable to code a diagnosis of rule out, probable, possible, questionable, or suspected. Tests that require a diagnosis: DOS: 09/01/17 * PHENTOIN (DILANTIN) DIAGNOSIS: * LIPID PROFILE FASTING DIAGNOSIS: * LAMICTAL DIAGNOSIS: Provider Signature: Date: Thank you Sherlyn Howell Health Information Management Once completed, please kindly fax back to [phone] For questions please call [phone]
== END | disposition home or self-care (01) ==
LOC: C.LAB 08:02
PROVIDERS: ATTEND Physician Assistant
DX: R56.9 Unspecified convulsions (principal)

== ENCOUNTER 2017-11-28 18:53 | Emergency (ER) | payer OTHER ==
[~2017-11-28] VITALS: Ht 172.7 cm; Wt 110.7 kg
[2017-11-28 18:55] VITALS: TEMP 36.5; Ht 172.7 cm; Wt 110.7 kg
[2017-11-28] MEDS ORDERED: SODIUM CHLORIDE 0.9% 1000ML 1,000 ML IV STA (19:04)
--- NOTE | 2017-11-28 19:33 | DIAGNOSTIC IMAGING REPORT ---
SINGLE VIEW CHEST CLINICAL HISTORY: Change in mental status. Weakness. FINDINGS: An AP, portable, upright chest radiograph is compared to study dated 08/16/2017 and correlated with chest CT dated 04/01/2010. The examination is degraded by portable technique and patient rotation. The heart is enlarged. The pulmonary vasculature is noncongested. There are low lung volumes and bibasilar atelectasis. The lungs and pleural spaces are otherwise clear. No pneumothorax is seen. The skeletal structures are osteopenic. The bony thorax is grossly intact. IMPRESSION: 1. Cardiomegaly without radiographic evidence of congestive failure. 2. Low lung volumes with no acute cardiopulmonary abnormality. Electronically signed by: Alon Hollingsworth M.D. 11/28/2017 7:32 PM Dictated Date/Time: 11/28/2017 7:30 PM
--- NOTE | 2017-11-28 19:46 | DIAGNOSTIC IMAGING REPORT ---
CT SCAN OF THE BRAIN WITHOUT IV CONTRAST CLINICAL HISTORY: Weakness. Change in mental status. COMPARISON STUDY: CT of the brain dated 08/16/2017. MRI of the brain dated 08/17/2017. TECHNIQUE: Unenhanced axial CT scan of the brain is performed from the vertex to the skull base. A dose lowering technique was utilized adhering to the principles of ALARA. CT DOSE: 537.48 mGy.cm FINDINGS: Brain parenchyma: Left temporal encephalomalacia is unchanged and consistent with a remote infarct. There is no hemorrhage, mass effect, or evidence of acute territorial ischemia by CT criteria. Mendenhall-white matter is preserved. No extra-axial fluid collection is seen. Ventricles, sulci, cisterns: Normal in configuration. Intracranial vasculature: There is atherosclerotic calcification of the cavernous carotid arteries. Calvarium: Unremarkable. Sinuses and mastoids: The visualized paranasal sinuses are clear. The mastoid air cells are well pneumatized. Orbits: The bony orbits are grossly intact. IMPRESSION: There is no hemorrhage, mass effect, or evidence of acute territorial ischemia by CT criteria. Electronically signed by: Alon Hollingsworth M.D. 11/28/2017 7:45 PM Dictated Date/Time: 11/28/2017 7:42 PM
[2017-11-28] MEDS ORDERED: LAMO150T PO (20:03)
[2017-11-28] MEDS ORDERED: RISP0.5T10 PO (20:03)
[2017-11-28 20:35] LABS: BASO % 0.2 %; BASO ABS # 0.01 K/uL (0-0.2); EOS % 1.5 %; EOS ABS # 0.08 K/uL (0-0.5); HEMATOCRIT 37.9 % (37-47); HEMOGLOBIN 12.3 g/dL (12.0-16.0); IG# 0.02 K/uL (0.00-0.02); LYMPH % 28.4 %; LYMPH ABS # 1.54 K/uL (1.2-3.4); MEAN CELL VOLUME 86.7 fL (80-100); MEAN CORPUSCULAR HEMOGLOBIN 28.1 pg (25-34); MEAN CORPUSCULAR HGB CONC 32.5 g/dl (32-36); MEAN PLATELET VOLUME 11.3 fL (7.4-10.4); MONO ABS # 0.38 K/uL (0.11-0.59); NEUT % 62.5 %; NEUT ABS # 3.39 K/uL (1.4-6.5); PLATELET COUNT 157 K/uL (130-400); RED CELL DISTRIBUTION WIDTH CV 13.6 % (11.5-14.5); RED CELL DISTRIBUTION WIDTH SD 42.8 fL (36.4-46.3); WHITE BLOOD COUNT 5.42 K/uL (4.8-10.8)
[2017-11-28] MEDS ORDERED: ACETAMINOPHEN 500 MG TAB PO STA (21:08)
[2017-11-28 21:29] LABS: ALKALINE PHOSPHATASE 129 U/L (45-117); ALT/SGPT 21 U/L (12-78); BLOOD UREA NITROGEN 21 mg/dl (7-18); CALCIUM 9.3 mg/dl (8.5-10.1); CARBON DIOXIDE 29 mmol/L (21-32); CKMB 1.2 ng/ml (0.5-3.6); CREATININE 1.09 mg/dl (0.60-1.20); GLUCOSE 88 mg/dl (70-99); LIPASE 217 U/L (73-393)
[2017-11-28 21:32] LABS: POTASSIUM 4.8 mmol/L (3.5-5.1); SODIUM 138 mmol/L (136-145); TOTAL PROTEIN 8.1 gm/dl (6.4-8.2)
[2017-11-28 21:34] LABS: AST/SGOT 16 U/L (15-37)
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
[2017-11-28 22:07] VITALS: BP 145/97; PULSE 84; O2SAT 100
== END 2017-11-28 22:21 | disposition home or self-care (01) ==
LOC: EDBD 18:53 → C.EDC 18:54
DX: R53.1 Weakness (principal); Z86.73 Personal history of transient ischemic attack (TIA), and cerebral infarction without residual deficits; I10 Essential (primary) hypertension; D64.9 Anemia, unspecified; Z87.828 Personal history of other (healed) physical injury and trauma; E78.5 Hyperlipidemia, unspecified; G89.4 Chronic pain syndrome; Z86.14 Personal history of Methicillin resistant Staphylococcus aureus infection; F41.9 Anxiety disorder, unspecified; F32.9 Major depressive disorder, single episode, unspecified; Z79.899 Other long term (current) drug therapy

== ENCOUNTER → 2017-12-22 | Outpatient (CLI) | payer OTHER ==
[~2017-12-22] MED LIST changes: -ASPEC325 PO; -DXY100 PO; +LAMO150T PO; -LAMO25TA PO; -LPT40 PO; +RISP0.5T10 PO
== END | disposition home or self-care (01) ==
LOC: C.RDSM 17:56
PROVIDERS: ATTEND Orthopaedic Surgery
DX: M79.641 Pain in right hand (principal)

== ENCOUNTER 2018-01-11 07:51 | Emergency (ER) | payer OTHER ==
[2018-01-11 07:54] VITALS: TEMP 37
[2018-01-11] MEDS ORDERED: KPP/1000 PO (08:29)
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
--- NOTE | 2018-01-11 09:10 | DIAGNOSTIC IMAGING REPORT ---
HEAD WITHOUT CONTRAST (CT) CT DOSE: 788.63 mGycm HISTORY: Mental status change EVALUATE FOR PSYCH CLEARANCE TECHNIQUE: Multiaxial CT images of the head were performed without the use of intravenous contrast. A dose lowering technique was utilized adhering to the principles of ALARA. Comparison: 11/28/2017 Findings: The paranasal sinuses and mastoid air cells are clear. The calvarium and skull base are intact. The ventricles and sulci are within normal limits. There is no mass, hematoma, midline shift, or acute infarct. Scattered areas of encephalomalacia. Chronic frontal atrophy. Ventricular system is midline. No acute intracranial hemorrhage. Impression: Chronic and age-related change. No acute process. The above report was generated using voice recognition software. It may contain grammatical, syntax or spelling errors. Electronically signed by: Kobi Parra M.D. 01/11/2018 9:09 AM Dictated Date/Time: 01/11/2018 9:07 AM
[2018-01-11 09:14] LABS: HEMATOCRIT 37.7 % (37-47); HEMOGLOBIN 12.8 g/dL (12.0-16.0); MEAN CELL VOLUME 82.9 fL (80-100); MEAN CORPUSCULAR HEMOGLOBIN 28.1 pg (25-34); MEAN PLATELET VOLUME 10.8 fL (7.4-10.4); PLATELET COUNT 177 K/uL (130-400); RED CELL DISTRIBUTION WIDTH CV 13.8 % (11.5-14.5); RED CELL DISTRIBUTION WIDTH SD 41.3 fL (36.4-46.3); WHITE BLOOD COUNT 7.03 K/uL (4.8-10.8)
[2018-01-11 09:31] LABS: ALBUMIN 3.7 gm/dl (3.4-5.0); BLOOD UREA NITROGEN 20 mg/dl (7-18); CALCIUM 8.7 mg/dl (8.5-10.1); CARBON DIOXIDE 27 mmol/L (21-32); CREATININE 1.21 mg/dl (0.60-1.20); GLUCOSE 95 mg/dl (70-99); POTASSIUM 3.8 mmol/L (3.5-5.1); SODIUM 139 mmol/L (136-145)
[2018-01-11 09:40] LABS: ALKALINE PHOSPHATASE 106 U/L (45-117); ALT/SGPT 18 U/L (12-78); AST/SGOT 11 U/L (15-37); TOTAL PROTEIN 7.7 gm/dl (6.4-8.2)
[2018-01-11] MEDS: LEVETIRACETAM 500 MG TAB PO SCH (21:00)
[2018-01-11] MEDS ORDERED: RISPERIDONE 0.5 MG TAB PO SCH (21:00)
--- NOTE | 2018-01-11 22:30 | EMERGENCY ROOM VISIT NOTE ---
ED Visit Note This patient was signed out to me awaiting placement. The patient was essentially dropped off here by an ex-boyfriend who brought her from out of town. He then decided that he is unable to care for her. She has a multitude of medical issues. She was initially brought in as a mental health evaluation but is not felt to be mentally ill at this time. The patient is not felt to be capable of taking care of herself and has no family to do so. The patient is to be evaluated tomorrow by service of aging to see about placement. She was given her evening meds. She will be signed out to the night doctor, Dr. harrington.
--- NOTE | 2018-01-12 06:35 | EMERGENCY ROOM VISIT NOTE ---
ED Visit Note First contact with patient: 00:05 52 yr old female initially evaluated by Dr Mcdermott, then Dr Pinedo who signed her out to me awaiting office of aging evaluation. patient brought in by significant other for evaluation of psychiatric issues. Met no criteria for inpatient psychiatric treatment. She apparently has been depressed and not caring for self. She was signed out to Dr Lester awaiting further placement discussions.
[2018-01-12] MEDS: LEVETIRACETAM 500 MG TAB PO SCH (08:44)
--- NOTE | 2018-01-12 10:24 | EMERGENCY ROOM VISIT NOTE ---
ED Visit Note First contact with patient: 10:23 I received this patient at change of shift signout from Dr. Pepe. The patient was medically cleared previously. The patient presented to the emergency department for a general evaluation although it does appear that most of the issues are social in nature. The patient was recently released from care home. She is homeless at this time. She has no acute mental health or medical requirements at this time. She was evaluated by [facility]. At this time she is to be discharged to a homeless alf. She was given all of her medications on released from the care home. She was encouraged to call crisis or return to the emergency department immediately if symptoms change or worsen or the need arises.
[2018-01-12 10:45] VITALS: BP 149/89; PULSE 110; O2SAT 100
== END 2018-01-12 11:50 | disposition home or self-care (01) ==
LOC: C.EDB 07:53 → C.EDA 01-12 11:50
DX: R46.2 Strange and inexplicable behavior (principal); R00.0 Tachycardia, unspecified; R56.9 Unspecified convulsions; I10 Essential (primary) hypertension; F41.8 Other specified anxiety disorders; Z88.6 Allergy status to analgesic agent; Z88.0 Allergy status to penicillin; Z88.2 Allergy status to sulfonamides; Z88.8 Allergy status to other drugs, medicaments and biological substances